=== PATIENT | male | born 1995 | race Caucasian/White ===

== ENCOUNTER 2017-01-19 21:25 | Emergency (ER) | payer OTHER ==
[~2017-01-19] VITALS: Ht 177.8 cm; Wt 87.0 kg
[~2017-01-19 21:25] MED LIST: HYDR-3498 PO; IBUP-1542 PO
[2017-01-19 22:00] VITALS: Ht 177.8 cm; Wt 87.0 kg
[2017-01-20] MEDS ORDERED: IBUP-1542 PO (00:24)
[2017-01-20] MEDS ORDERED: PEN500 PO (00:24)
[2017-01-20] MEDS ORDERED: ACET500C5 PO (00:24)
[2017-01-20] MEDS ORDERED: ACETAMINOPHEN 325 MG TAB PO ONE (00:30)
[2017-01-20] MEDS ORDERED: PENICILLIN V K 250 MG TAB PO ONE (00:30)
[2017-01-20] MEDS ORDERED: IBUPROFEN 600 MG TAB PO ONE (00:30)
--- NOTE | 2017-01-20 00:31 | ERD ---
ER Documentation Chief Complaint Date/Time DATE: 01/20/17 TIME: 00:26 Chief Complaint Severe swelling of the throat, with fever HPI 21-year-old male presents here in emergency department for complaints of sore throat and fever for the last 3 days. Patient's complaint of sore throat, throbbing pain, 8/10 scale, is worse upon swollen. This is accompanied with fever. Patient did not take any medications to help with symptoms. Patient denies any stridor or shortness breath. She denies any sick contacts. ROS All systems reviewed and are negative except as per history of present illness. Medications Home Meds Active Scripts Acetaminophen* (Tylophen*) 500 Mg Capsule, 1 CAP PO Q6H Y for PAIN AND OR ELEVATED TEMP, #20 CAP Prov:CARIE BRO [employer] 01/20/17 Ibuprofen* (Motrin*) 600 Mg Tab, 600 MG PO Q6H Y for PAIN AND OR ELEVATED TEMP, #30 TAB Prov:CARIE BRO [employer] 01/20/17 Penicillin V Potassium* (Penicillin V K*) 500 Mg Tab, 500 MG PO QID for 10 Days , TAB Prov:CARIE BRO. [employer] 01/20/17 Ibuprofen* (Motrin*) 600 Mg Tab, 600 MG PO Q6H Y for PAIN AND OR ELEVATED TEMP, #30 TAB Prov:CARIE BRO. [employer] 07/18/16 Hydrocodone Bit-Acetaminophen* (Lentner*) 5-325 Mg Tab, 1 TAB PO Q6 Y for PAIN, # 20 TAB Prov:KALA FIERRO 05/16/16 Allergies Allergies: Coded Allergies: No Known Allergy (Unverified , 07/18/16) PMhx/Soc Medical and Surgical Hx: pt denies Medical Hx, pt denies Surgical Hx History of Surgery: No Anesthesia Reaction: No Hx Neurological Disorder: No Hx Respiratory Disorders: No Hx Cardiac Disorders: No Hx Psychiatric Problems: No Hx Miscellaneous Medical Probl: Yes (GAL STONES) Hx Alcohol Use: No Hx Substance Use: Yes (MJ) Hx Tobacco Use: No Smoking Status: Never smoker FmHx Family History: No coronary disease, No diabetes, No other Physical Exam Vitals Vital Signs Date Time Temp Pulse Resp B/P Pulse Ox O2 Delivery O2 Flow Rate FiO2 01/20/17 01:28 99.3 72 17 141/73 97 Room Air 01/19/17 22:00 101.7 129 22 118/64 96 Physical Exam GENERAL: The patient is well developed and appropriate for usual state of health, in no apparent distress. HEENT: Atraumatic. Ears: Normal tympanic membrane, no erythema or bulging. No ear canal swelling. No ear discharge. Nose: normal nasal turbinates, no erythema or swelling. Normal nasal discharge. Throat: oropharynx erythematous with tonsillar swelling and tonsillar exudates noted. No lymphadenopathy. CHEST: Clear to auscultation bilaterally. There are no rales, wheezes or rhonchi. HEART: Regular rate and rhythm. No murmurs, clicks, rubs or gallops. No S3 or S4. ABDOMEN: Soft, nontender and nondistended. Good bowel sounds. No rebound or guarding. No gross peritonitis. No gross organomegaly or masses. No Pruitt sign or McBurney point tenderness. BACK: No midline or flank tenderness. EXTREMITIES: Equal pulses bilaterally. There is no peripheral clubbing, cyanosis or edema. No focal swelling or erythema. Full range of motion. Grossly neurovascularly intact. NEURO: Alert and oriented. Cranial nerves 2-12 intact. Motor strength in all 4 extremities with 5/5 strength. Sensation grossly intact. Normal speech and gait. SKIN: There is no apparent rash or petechia. The skin is warm and dry. HEMATOLOGIC AND LYMPHATIC: There is no evidence of excessive bruising or lymphedema. No gross cervical, axillary, or inguinal lymphadenopathy. Results 24 hrs Current Medications Medications (Trade) Dose Ordered Sig/[place] Route PRN Reason Start Time Stop Time Status Last Admin Dose Admin Penicillin V Potassium (Penicillin V K) 500 mg ONCE ONCE PO 01/20/17 00:30 01/20/17 00:31 DC 01/20/17 01:02 Ibuprofen (Motrin) 600 mg ONCE ONCE PO 01/20/17 00:30 01/20/17 00:31 DC 01/20/17 00:32 Acetaminophen (Tylenol Tab) 650 mg ONCE ONCE PO 01/20/17 00:30 01/20/17 00:31 DC 01/20/17 00:32 First dose of Penicillin VK was given here in emergency department.Patient was given medicines for fever control here in the emergency department. After treatment, patient temperature improved and lower. Patient appears well and is hemodynamically stable. Procedures/MDM Medical decision making: Patient symptoms with most likely consistent with strep pharyngitis. No symptoms of peritonsillar abscess, laryngitis, epiglottitis. No oral airway obstruction noted. No stridor noted. Patient was given prescription for Tylenol, ibuprofen, penicillin VK, is advised to do saltwater gargles, rest, drink a lot of water. Patient is advised to return to emergency department for worsening symptoms Departure Diagnosis: Primary Impression: Strep pharyngitis Condition: Stable Patient Instructions: Strep Throat CARIE BRO NP Jan 20, 2017 00:31
[2017-01-20 01:28] VITALS: BP 141/73; PULSE 72; RESP 17; TEMP 99.3
== END 2017-01-20 01:28 | disposition home or self-care (01) ==
LOC: FTE 21:25
DX: J02.0 Streptococcal pharyngitis (principal)
CPT/HCPCS: Z7502; Z7610; 99283